=== PATIENT | female | born 1970 | race Caucasian/White ===

== ENCOUNTER 2018-01-16 14:39 | Emergency (ER) | payer SELFPAY ==
--- NOTE | 2018-01-16 16:08 | RAD REPORT ---
EXAM DESCRIPTION: CT - Head Brain Wo Cont - 01/16/2018 4:01 pm CLINICAL HISTORY: Headache, dizziness COMPARISON: CT study August 2008 TECHNIQUE: Axial 5 mm thick images of the head were obtained without IV contrast. All CT scans are performed using dose optimization technique as appropriate and may include automated exposure control or mA/KV adjustment according to patient size. FINDINGS: No intracranial hemorrhage, mass, edema or shift of mid-line structures. No acute infarcti on changes seen. No abnormal extra-axial fluid collections. Ventricles are normal. Mastoid air cells and visualized portions of the paranasal sinuses are clear. No acute bony findings. IMPRESSION: Negative non-contrast CT head examination. No significant change from 2007.
[2018-01-16 16:39] LABS: Absolute Lymphocytes (CBC) 2.8 K/uL (0.7-4.9); Absolute Monocytes 0.3 K/uL (0.1-1.3); Absolute Neutrophil 3.9 K/uL (1.8-8.0); Basophils % 0.7 % (0-1.3); Eosinophils % 1.6 % (0-4.4); Hematocrit 41.3 % (36.0-45.0); Lymphocytes % 38.8 % (15.3-44.8); MCV 93.2 fL (80-100); MPV 8.2 fL (7.6-11.3); Monocytes % 4.1 % (3.3-12.3); RBC Red Blood Cell Count 4.43 M/uL (3.86-4.86)
[2018-01-16] MEDS ORDERED: DEXAMETHASONE 10 MG/ML VIAL ONE (16:45)
[2018-01-16] MEDS ORDERED: DIPHENHYDRAMINE 50 MG/ML VIAL ONE (16:45)
[2018-01-16] MEDS ORDERED: KETOROLAC 30 MG/ML INJ ONE (16:45)
[2018-01-16] MEDS ORDERED: NA CHLORIDE 0.9% 1,000 ML ONE (16:46)
[2018-01-16 16:47] LABS: Potassium 3.7 mEq/L (3.6-5.0)
[2018-01-16 16:50] LABS: Bilirubin Total 0.6 mg/dL (0.3-1.2); Protein, Total 7.8 g/dL (6.0-8.3)
--- NOTE | 2018-01-16 17:36 | ER ---
Nurse's Notes [facility] Name: Claudine Ornelas Age: 47 yrs Sex: Female : 1970 Arrival Date: 01/16/2018 Time: 14:43 Bed 14 Private MD: Diagnosis: Headache Presentation: 01/16 14:47 Presenting complaint: Patient states: Headache, shakiness, decreased energy for 2 aj weeks. Patient called PCP last week and this AM, is unable to get appointment this week. Transition of care: patient was not received from another setting of care. Onset of symptoms was January 04, 2018. Care prior to arrival: None. 14:47 Method Of Arrival: Ambulatory 14:47 Acuity: AURE 3 aj Triage Assessment: 14:49 Headache History: The patient has had previous headaches and this one is similar to previous episodes. General: Appears in no apparent distress. comfortable, Behavior is calm, cooperative, appropriate for age. Pain: Complains of pain in face and scalp Pain currently is 8 out of 10 on a pain scale. Pain began 2 weeks ago. Neuro: Level of Consciousness is awake, alert, obeys commands, Oriented to person, place, time, situation, Principal Java Developer are equal bilaterally Moves all extremities. Full function Gait is steady, Speech is normal, Facial symmetry appears normal, Reports headache. Respiratory: Airway is patent Respiratory effort is even, unlabored, Respiratory pattern is regular, symmetrical. Derm: Skin is intact, is healthy with good turgor, Skin is pink, warm \T\ dry. normal. 15:30 Pain: Also complains of nausea. 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 - Social history:: Smoking status: Patient uses tobacco products, smokes one-half pack cigarettes per day. Screenin:49 Abuse screen: Denies threats or abuse. Nutritional screening: No deficits noted. tw2 Tuberculosis screening: No symptoms or risk factors identified. Fall Risk None identified. Assessment: 15:30 General: Appears in no apparent distress. slender, well groomed, Behavior is calm, tw2 cooperative, appropriate for age. Pain: Complains of pain in scalp and face. Neuro: Level of Consciousness is awake, alert, obeys commands, Oriented to person, place, time, situation. Cardiovascular: Reports shortness of breath, Heart tones S1 S2 Capillary refill < 3 seconds Patient's skin is warm and dry. Respiratory: Airway is patent Respiratory effort is even, unlabored, Respiratory pattern is regular, symmetrical, Breath sounds are clear bilaterally. GI: Abdomen is flat, Bowel sounds present X 4 quads. Reports nausea. : No signs and/or symptoms were reported regarding the genitourinary system. EENT: Reports blurred vision. Derm: No signs and/or symptoms reported regarding the dermatologic system. Skin is intact, is healthy with good turgor, Skin is pink, warm \T\ dry. Skin temperature is warm. Musculoskeletal: Range of motion: intact in all extremities. 15:58 Reassessment: to CT at this time via w/c with Subhash Jaffe. tw2 16:40 Reassessment: Patient appears in no apparent distress at this time. No changes from tw2 previously documented assessment. Patient and/or family updated on plan of care and expected duration. Pain level reassessed. Patient is alert, oriented x 3, equal unlabored respirations, skin warm/dry/pink. 17:43 Reassessment: Patient appears in no apparent distress at this time. No changes from tw2 previously documented assessment. Patient and/or family updated on plan of care and expected duration. Pain level reassessed. Patient is alert, oriented x 3, equal unlabored respirations, skin warm/dry/pink. Patient states symptoms have not improved. 18:05 Reassessment: Patient appears in no apparent distress at this time. Patient and/or tw2 family updated on plan of care and expected duration. Pain level reassessed. Patient is alert/active/playful, equal unlabored respirations, skin warm/dry/pink. provider at bedside at this time, pts pain has decreased. Patient states feeling better. Patient states symptoms have improved. Vital Signs: 14:49 BP 129 / 99; Pulse 87; Resp 16; Temp 98.5; Pulse Ox 99% on R/A; Weight 68.04 kg; Height aj 5 ft. 1 in. (154.94 cm); Pain 8/10; 16:39 BP 145 / 84; Pulse 69; Resp 16; Pulse Ox 98% on R/A; tw2 17:42 BP 139 / 83; Pulse 71; Resp 16; Pulse Ox 100% ; Pain 8/10; tw2 18:12 BP 128 / 74; Pulse 63; Resp 17; Pulse Ox 98% on R/A; tw2 14:49 Body Mass Index 28.34 (68.04 kg, 154.94 cm) aj ED Course: 14:43 Patient arrived in ED. mr 14:48 Triage completed. aj 14:49 Arm band placed on left wrist. Patient placed in waiting room, Patient notified of wait aj time. 15:21 Bed in low position. Call light in reach. Adult w/ patient. Pulse ox on. NIBP on. Warm tw2 blanket given. Pillow given. 15:23 Rae Lopez, DELFINA is Primary Nurse. tw2 15:24 Johnine Jung NP is PHCP. pm1 15:24 Raza Armenta MD is Attending Physician. pm1 15:59 Patient moved to RI via wheelchair. nj 16:25 Inserted saline lock: 22 gauge in left forearm, using aseptic technique. ,using aseptic tw2 technique. per Subhash Lawrence Blood collected. Missed attempt(s): 22 gauge in left per Subhash Lawrence. Bleeding controlled, band aid applied, catheter tip intact. 16:50 No provider procedures requiring assistance completed. tw2 17:42 Awaiting: AWAITING MEDICATION WATCH prior to discharge. tw2 18:12 IV discontinued, intact, bleeding controlled, No redness/swelling at site. Pressure tw2 dressing applied. Administered Medications: 16:28 Drug: Benadryl 25 mg Route: IVP; Site: left forearm; tw2 17:33 Follow up: Response: No adverse reaction tw2 16:30 Drug: Decadron - Dexamethasone 10 mg Route: IVP; Site: left forearm; tw2 17:33 Follow up: Response: No adverse reaction tw2 16:32 Drug: TORadol 30 mg Route: IVP; Site: left forearm; tw2 17:33 Follow up: Response: No adverse reaction; Pain is unchanged, physician notified tw2 16:39 Drug: NS 0.9% 1000 ml Route: IV; Rate: 1000 ml; Site: left forearm; tw2 17:33 Follow up: Response: No adverse reaction; IV Status: Completed infusion; IV Intake: tw2 1000ml 17:42 Drug: morphine 4 mg Route: IVP; Site: left forearm; tw2 18:06 Follow up: Response: No adverse reaction; Pain is decreased tw2 Intake: 17:33 IV: 1000ml; Total: 1000ml. tw2 Outcome: 17:36 Discharge ordered by MD. pm1 18:12 Discharged to home ambulatory, with family. tw2 18:12 Condition: stable 18:12 Discharge instructions given to patient, family, Instructed on discharge instructions, follow up and referral plans. no drinking with medication, no driving heavy equipment, medication usage, Demonstrated understanding of instructions, follow-up care, medications, Prescriptions given X 1. 18:13 Patient left the ED. tw2 18:15 Patient left the ED. pm1 18:19 Patient left the ED. tw2 Signatures: Yvette Henderson RN RN aj Rivera, Maria mr Johnnie Jung, THORACIC SURGEON THORACIC SURGEON pm1 Rae Lopez RN RN tw2 Miguel Champion Corrections: (The following items were deleted from the chart) 16:40 15:58 Reassessment: Patient is alert/active/playful, equal unlabored respirations, skin tw2 warm/dry/pink. to CT at this time via w/c with Subhash Jaffe tw2
--- NOTE | 2018-01-16 17:36 | EDPHYS ---
Physician Documentation [facility] Name: Claudine Ornelas Age: 47 yrs Sex: Female : 1970 Arrival Date: 01/16/2018 Time: 14:43 Bed 14 Private MD: ED Physician Raza Armenta HPI: 01/16 16:22 This 47 yrs old Female presents to ER via Ambulatory with complaints of pm1 Headache, Nausea. 16:22 The patient complains of pain to the behind bilateral eyes. The patient describes the pm1 headache as aching, constant. Onset: The symptoms/episode began/occurred 3 day(s) ago. Associated signs and symptoms: Pertinent positives: nausea, Photophobia Pertinent negatives: fever, neck stiffness, rash, vision changes, vomiting. Severity of symptoms: in the emergency department the pain is actually worse. Headache History: Other Similar to prior headaches but lasting longer. The symptoms are alleviated by Darkened room, quiet, the symptoms are aggravated by lights. The patient has experienced similar episodes in the past, a few times. The patient has not recently seen a physician, the patient's primary care provider is Dr. Barclay. TOP FORMER: 14:49 LMP N/A - Hysterectomy aj Historical: - Allergies: 14:49 Reglan; aj - Home Meds: 14:49 acyclovir 400 mg Oral tab 1 tab daily [Active]; lisinopril 10 mg Oral tab 1 tab once aj daily [Active]; Tapazole 10 mg Oral tab 1 tab once daily [Active]; Xanax 1 mg Oral tab nightly [Active]; - PMHx: 14:49 Anxiety; Hypertension; Hypothyroidism; aj 14:49 Grave's disease; aj - PSHx: 14:49 orif right shoudler; Hysterectomy; Tubal ligation; aj - Immunization history:: Adult Immunizations up to date. - Social history:: Smoking status: Patient uses tobacco products, smokes one-half pack cigarettes per day. ROS: 16:22 Constitutional: Negative for fever, chills, and weight loss, Eyes: Negative for injury, pm1 pain, redness, and discharge, ENT: Negative for injury, pain, and discharge, Neck: Negative for injury, pain, and swelling, Cardiovascular: Negative for chest pain, palpitations, and edema, Respiratory: Negative for shortness of breath, cough, wheezing, and pleuritic chest pain, Back: Negative for injury and pain, : Negative for injury, bleeding, discharge, and swelling, MS/Extremity: Negative for injury and deformity, Skin: Negative for injury, rash, and discoloration. 16:22 Abdomen/GI: Positive for nausea, Negative for abdominal pain, vomiting, diarrhea. 16:22 Neuro: Positive for headache. 16:22 Neuro: Negative for altered mental status, loss of consciousness, numbness, tingling, weakness. Exam: 16:25 Constitutional: This is a well developed, well nourished patient who is awake, alert, pm1 and in no acute distress. Head/Face: Normocephalic, atraumatic. Eyes: Pupils equal round and reactive to light, extra-ocular motions intact. Lids and lashes normal. Conjunctiva and sclera are non-icteric and not injected. Cornea within normal limits. Periorbital areas with no swelling, redness, or edema. ENT: Nares patent. No nasal discharge, no septal abnormalities noted. Tympanic membranes are normal and external auditory canals are clear. Oropharynx with no redness, swelling, or masses, exudates, or evidence of obstruction, uvula midline. Mucous membranes moist. Neck: Trachea midline, no thyromegaly or masses palpated, and no cervical lymphadenopathy. Supple, full range of motion without nuchal rigidity, or vertebral point tenderness. No Meningismus. Chest/axilla: Normal chest wall appearance and motion. Nontender with no deformity. No lesions are appreciated. Cardiovascular: Regular rate and rhythm with a normal S1 and S2. No gallops, murmurs, or rubs. No pulse deficits. Respiratory: Lungs have equal breath sounds bilaterally, clear to auscultation and percussion. No rales, rhonchi or wheezes noted. No increased work of breathing, no retractions or nasal flaring. Abdomen/GI: Soft, non-tender, with normal bowel sounds. No distension or tympany. No guarding or rebound. No evidence of tenderness throughout. Back: No spinal tenderness. No costovertebral tenderness. Full range of motion. 16:25 MS/ Extremity: Pulses equal, no cyanosis. Neurovascular intact. Full, normal range of motion. 16:25 Skin: Appearance: normal except for affected area, soft red 1 cm mass present to right auricle. 16:25 Neuro: Orientation: is normal, Mentation: is normal, Cranial nerves: CN II- XII are normal as tested, Cerebellar function: normal finger to nose testing, Motor: is normal, moves all fours, strength is 5/5 in all extremities, Sensation: is normal. Vital Signs: 14:49 BP 129 / 99; Pulse 87; Resp 16; Temp 98.5; Pulse Ox 99% on R/A; Weight 68.04 kg; Height aj 5 ft. 1 in. (154.94 cm); Pain 8/10; 16:39 BP 145 / 84; Pulse 69; Resp 16; Pulse Ox 98% on R/A; tw2 17:42 BP 139 / 83; Pulse 71; Resp 16; Pulse Ox 100% ; Pain 8/10; tw2 18:12 BP 128 / 74; Pulse 63; Resp 17; Pulse Ox 98% on R/A; tw2 14:49 Body Mass Index 28.34 (68.04 kg, 154.94 cm) aj MDM: 15:28 Patient medically screened. pm1 17:35 Data reviewed: vital signs. Data interpreted: Pulse oximetry: on room air is 98 %. pm1 Interpretation: normal. Counseling: I had a detailed discussion with the patient and/or guardian regarding: the historical points, exam findings, and any diagnostic results supporting the discharge/admit diagnosis, lab results, radiology results, the need for outpatient follow up, to return to the emergency department if symptoms worsen or persist or if there are any questions or concerns that arise at home. 01/16 15:50 Order name: CBC with Diff pm1 01/16 15:50 Order name: CMP pm1 01/16 15:52 Order name: TSH pm1 01/16 16:48 Order name: Comprehensive Metabolic Panel EDMS 01/16 16:49 Order name: CBC with Automated Diff; Complete Time: 17:05 EDMS 01/16 17:27 Order name: Thyroid Stimulating Hormone; Complete Time: 17:30 EDMS 01/16 15:50 Order name: CT Head Brain wo Cont pm1 01/16 15:50 Order name: IV Saline Lock; Complete Time: 16:24 pm1 01/16 16:08 Order name: CT; Complete Time: 16:09 EDMS Administered Medications: 16:28 Drug: Benadryl 25 mg Route: IVP; Site: left forearm; tw2 17:33 Follow up: Response: No adverse reaction tw2 16:30 Drug: Decadron - Dexamethasone 10 mg Route: IVP; Site: left forearm; tw2 17:33 Follow up: Response: No adverse reaction tw2 16:32 Drug: TORadol 30 mg Route: IVP; Site: left forearm; tw2 17:33 Follow up: Response: No adverse reaction; Pain is unchanged, physician notified tw2 16:39 Drug: NS 0.9% 1000 ml Route: IV; Rate: 1000 ml; Site: left forearm; tw2 17:33 Follow up: Response: No adverse reaction; IV Status: Completed infusion; IV Intake: tw2 1000ml 17:42 Drug: morphine 4 mg Route: IVP; Site: left forearm; tw2 18:06 Follow up: Response: No adverse reaction; Pain is decreased tw2 Disposition: 18:22 Co-signature as Attending Physician, Raza Armenta MD. rn Disposition: 01/16/18 17:36 Discharged to Home. Impression: Headache. - Condition is Stable. - Discharge Instructions: General Headache Without Cause. - Prescriptions for Fiorinal 50- 325-40 mg Oral Capsule - take 1 capsule by ORAL route every 4 hours As needed - not to exceed 6 capsules per day; 20 capsule. - Medication Reconciliation Form, Thank You Letter form. - Follow up: Emergency Department; When: As needed; Reason: Worsening of condition. Follow up: Private Physician; When: 2 - 3 days; Reason: Recheck today's complaints, Continuance of care, Re-evaluation by your physician. - Problem is new. - Symptoms have improved. Signatures: Dispatcher [employer] Yvette Hubbard RN RN aj Nieto, Roman, MD MD rn Marinas, Patrick, LOLY MICROBIOLOGY INSTRUCTOR pm1 Rae Lopez RN RN tw2
[2018-01-16] MEDS ORDERED: MORPHINE 4 MG/ML SYR ONE (17:58)
[2018-01-16 18:34] VITALS: TEMP 98.5
[2018-01-16 18:38] VITALS: BP 128/74; O2SAT 98
== END 2018-01-16 18:19 | disposition home or self-care (01) ==
LOC: ER 14:39
DX: R51 Headache (principal); I10 Essential (primary) hypertension; F41.9 Anxiety disorder, unspecified; E03.9 Hypothyroidism, unspecified; F17.210 Nicotine dependence, cigarettes, uncomplicated
CPT/HCPCS: 36415; 70450; 80053; 84443; 85025; 96361; 96374; 96375; 99284; J1100; J7030

== ENCOUNTER 2019-07-19 13:58 | Emergency (ER) | payer SELFPAY ==
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
[2019-07-19] MEDS ORDERED: dexAMETHasone 10 MG/ML VIAL ONE (14:34)
[2019-07-19] MEDS ORDERED: KETOROLAC 30 MG/ML INJ ONE (14:34)
[2019-07-19] MEDS ORDERED: CLINDAMYCIN 900MG/D5W 900 MG/50 ML IVPB IV ONE (14:35)
[2019-07-19 14:43] LABS: Absolute Lymphocytes (CBC) 1.9 K/uL (0.7-4.9); Basophils % 0.8 % (0-1.3); Hematocrit 34.5 % (36.0-45.0); Lymphocytes % 27.1 % (15.3-44.8); MPV 8.3 fL (7.6-11.3)
[2019-07-19 14:54] LABS: BUN Blood Urea Nitrogen 7 mg/dL (7-18); Bicarbonate 28 mmol/L (21-32); Glucose Level 90 mg/dL (74-106); Potassium 3.9 mmol/L (3.5-5.1); Sodium Level 144 mmol/L (136-145)
--- NOTE | 2019-07-19 15:01 | ER ---
Nurse's Notes [facility] Name: Claudine Ornelas Age: 49 yrs Sex: Female : 1970 Arrival Date: 07/19/2019 Time: 14:03 Bed 27 Private MD: Diagnosis: Cellulitis of face;Periapical abscess without sinus Presentation: 07/19 14:07 Presenting complaint: Left sided facial swelling and pain since 0400 today. PT report hb recent broken upper right tooth. Transition of care: patient was not received from another setting of care. Onset of symptoms was July 19, 2019. Risk Assessment: Do you want to hurt yourself or someone else? Patient reports no desire to harm self or others. Initial Sepsis Screen: Does the patient meet any 2 criteria? No. Patient's initial sepsis screen is negative. Does the patient have a suspected source of infection? No. Patient's initial sepsis screen is negative. Care prior to arrival: None. 14:07 Method Of Arrival: Ambulatory 14:07 Acuity: AURE 3 hb Triage Assessment: 14:48 EENT: Reports pain in left cheek. rv Historical: - Allergies: 14:07 Reglan; hb - Immunization history:: Adult Immunizations up to date. - Social history:: Smoking status: Patient/guardian denies using tobacco. - Ebola Screening: : No symptoms or risks identified at this time. Screenin:48 Abuse screen: Denies threats or abuse. Denies injuries from another. Nutritional rv screening: No deficits noted. Tuberculosis screening: No symptoms or risk factors identified. Fall Risk None identified. Assessment: 14:46 General: Appears in no apparent distress. uncomfortable, Behavior is calm, cooperative. rv Pain: Complains of pain in left cheek. Neuro: Level of Consciousness is awake, alert, obeys commands, Oriented to person, place, time, situation. Cardiovascular: Patient's skin is warm and dry. Respiratory: Airway is patent. GI: No signs and/or symptoms were reported involving the gastrointestinal system. : No signs and/or symptoms were reported regarding the genitourinary system. EENT: Dental caries noted in upper right first bicuspid. Derm: Skin is intact. Musculoskeletal: Swelling present in left cheek. 15:25 Reassessment: patient is alert and calm upon administration of Morphine, before rv discharge. patient is with a family member who is going to drive her home. Vital Signs: 14:07 BP 130 / 96; Pulse 81; Resp 16; Temp 98.9; Pulse Ox 96% on R/A; Weight 74.84 kg; Height hb 5 ft. 1 in. (154.94 cm); Pain 9/10; 15:24 BP 128 / 94; Pulse 76; Resp 16; Temp 98.5(O); Pulse Ox 97% on R/A; rv 14:07 Body Mass Index 31.18 (74.84 kg, 154.94 cm) hb ED Course: 14:03 Patient arrived in ED. am2 14:06 Arm band placed on. hb 14:08 Triage completed. hb 14:09 Guicho Simental PA is PHCP. jr8 14:09 Sanjay Zavala MD is Attending Physician. jr8 14:26 Adolfo Fontanez RN is Primary Nurse. rv 14:30 Inserted saline lock: 20 gauge in right forearm, using aseptic technique. Blood rv collected. 14:39 BMP Sent. rv 14:39 CBC with Diff Sent. rv 14:48 Patient has correct armband on for positive identification. Bed in low position. Call rv light in reach. Side rails up X 1. Pulse ox on. NIBP on. 15:24 No provider procedures requiring assistance completed. IV discontinued, intact, rv bleeding controlled, No redness/swelling at site. Administered Medications: 14:37 Drug: TORadol - Ketorolac 15 mg Route: IVP; Site: right forearm; rv 15:23 Follow up: Response: Pain is unchanged, physician notified rv 14:38 Drug: Decadron - Dexamethasone 10 mg Route: IVP; Site: right forearm; rv 15:23 Follow up: Response: No adverse reaction rv 14:39 Drug: Clindamycin 900 mg Route: IVPB; Infused Over: 30 mins; Site: right forearm; rv 15:23 Follow up: IV Status: Completed infusion; IV Intake: 50ml rv 15:15 Drug: morphine 4 mg Route: IVP; Site: right forearm; rv 15:21 Follow up: rass 0 rv 15:22 Follow up: Response: Medication administered at discharge. rv 15:15 Drug: Zofran 4 mg Route: IVP; Site: right forearm; rv 15:22 Follow up: Response: Medication administered at discharge. rv Intake: 15:23 IV: 50ml; Total: 50ml. rv Outcome: 14:59 Discharge ordered by MD. roth 15:24 Discharged to home ambulatory, with family. rv 15:24 Condition: good 15:24 Discharge instructions given to patient, family, Instructed on discharge instructions, follow up and referral plans. medication usage, Demonstrated understanding of instructions, follow-up care, medications, Prescriptions given X 4. 15:28 Patient left the ED. rv Signatures: Guicho Simental PA PA jr8 Aretha Lindo, RN RN Yvette Adams am2 Adolfo Fontanez, RN RN rv
--- NOTE | 2019-07-19 15:02 | EDPHYS ---
Physician Documentation [facility] Name: Claudine Ornelas Age: 49 yrs Sex: Female : 1970 Arrival Date: 07/19/2019 Time: 14:03 Bed 27 Private MD: ED Physician Sanjay Zavala HPI: 07/19 14:16 This 49 yrs old Female presents to ER via Ambulatory with complaints of jr8 Toothache, Facial Swelling. 14:16 The patient presents with pain, redness, swelling. The problem is located in the upper jr8 right first bicuspid. Onset: The symptoms/episode began/occurred this morning. Severity of symptoms: At their worst the symptoms were moderate, in the emergency department the symptoms are unchanged. Pt states that at about 0400 she began having severe pain and swelling to the left upper jaw/face area. Pt has poor dentition and has had dental infections in the past. . Historical: - Allergies: 14:07 Reglan; hb - Immunization history:: Adult Immunizations up to date. - Social history:: Smoking status: Patient/guardian denies using tobacco. - Ebola Screening: : No symptoms or risks identified at this time. ROS: 14:19 Constitutional: Negative for fever, chills, and weight loss, Eyes: Negative for injury, jr8 pain, redness, and discharge, Neck: Negative for injury, pain, and swelling, Cardiovascular: Negative for chest pain, palpitations, and edema, Respiratory: Negative for shortness of breath, cough, wheezing, and pleuritic chest pain, Abdomen/GI: Negative for abdominal pain, nausea, vomiting, diarrhea, and constipation, Back: Negative for injury and pain, : Negative for injury, bleeding, discharge, and swelling, MS/Extremity: Negative for injury and deformity, Neuro: Negative for headache, weakness, numbness, tingling, and seizure. 14:19 ENT: Positive for dental pain, Gum pain Teeth pain Exam: 14:19 Constitutional: This is a well developed, well nourished patient who is awake, alert, jr8 and in no acute distress. Head/Face: Normocephalic, atraumatic. Eyes: Pupils equal round and reactive to light, extra-ocular motions intact. Lids and lashes normal. Conjunctiva and sclera are non-icteric and not injected. Cornea within normal limits. Periorbital areas with no swelling, redness, or edema. Neck: Trachea midline, no thyromegaly or masses palpated, and no cervical lymphadenopathy. Supple, full range of motion without nuchal rigidity, or vertebral point tenderness. No Meningismus. Chest/axilla: Normal chest wall appearance and motion. Nontender with no deformity. No lesions are appreciated. Cardiovascular: Regular rate and rhythm with a normal S1 and S2. No gallops, murmurs, or rubs. Normal PMI, no JVD. No pulse deficits. Respiratory: Lungs have equal breath sounds bilaterally, clear to auscultation and percussion. No rales, rhonchi or wheezes noted. No increased work of breathing, no retractions or nasal flaring. Abdomen/GI: Soft, non-tender, with normal bowel sounds. No distension or tympany. No guarding or rebound. No evidence of tenderness throughout. Back: No spinal tenderness. No costovertebral tenderness. Full range of motion. Skin: Warm, dry with normal turgor. Normal color with no rashes, no lesions, and no evidence of cellulitis. MS/ Extremity: Pulses equal, no cyanosis. Neurovascular intact. Full, normal range of motion. Neuro: Awake and alert, GCS 15, oriented to person, place, time, and situation. Cranial nerves II-XII grossly intact. Motor strength 5/5 in all extremities. Sensory grossly intact. Cerebellar exam normal. Normal gait. 14:19 Head/face: Noted is erythema, that is mild, of the left cheek, swelling, that is mild, of the left cheek. 14:19 ENT: Dental exam: dental caries, that is moderate, missing teeth, diffusely. Vital Signs: 14:07 BP 130 / 96; Pulse 81; Resp 16; Temp 98.9; Pulse Ox 96% on R/A; Weight 74.84 kg; Height hb 5 ft. 1 in. (154.94 cm); Pain 9/10; 15:24 BP 128 / 94; Pulse 76; Resp 16; Temp 98.5(O); Pulse Ox 97% on R/A; rv 14:07 Body Mass Index 31.18 (74.84 kg, 154.94 cm) hb [facility]: 14:09 Patient medically screened. 8 14:57 Data reviewed: vital signs, nurses notes, lab test result(s). Data interpreted: Pulse jr8 oximetry: on room air is 96 %. Interpretation: normal. Counseling: I had a detailed discussion with the patient and/or guardian regarding: the historical points, exam findings, and any diagnostic results supporting the discharge/admit diagnosis, lab results, the need for outpatient follow up, a dentist, to return to the emergency department if symptoms worsen or persist or if there are any questions or concerns that arise at home. Response to treatment: the patient's symptoms have markedly improved after treatment. ED course: Strict return precautions given if swelling were to worsen or if she were to start running high fevers. Otherwise improvement noted in ED. Patient non toxic. No airway compromise and VS are stable with no acute lab findings . 07/19 14:22 Order name: CBC with Diff jr8 07/19 14:22 Order name: BMP jr8 07/19 14:47 Order name: CBC with Automated Diff; Complete Time: 14:54 EDMS 07/19 14:55 Order name: Basic Metabolic Panel; Complete Time: 14:57 EDMS 07/19 14:22 Order name: SL; Complete Time: 14:33 jr8 Administered Medications: 14:37 Drug: TORadol - Ketorolac 15 mg Route: IVP; Site: right forearm; rv 15:23 Follow up: Response: Pain is unchanged, physician notified rv 14:38 Drug: Decadron - Dexamethasone 10 mg Route: IVP; Site: right forearm; rv 15:23 Follow up: Response: No adverse reaction rv 14:39 Drug: Clindamycin 900 mg Route: IVPB; Infused Over: 30 mins; Site: right forearm; rv 15:23 Follow up: IV Status: Completed infusion; IV Intake: 50ml rv 15:15 Drug: morphine 4 mg Route: IVP; Site: right forearm; rv 15:21 Follow up: rass 0 rv 15:22 Follow up: Response: Medication administered at discharge. rv 15:15 Drug: Zofran 4 mg Route: IVP; Site: right forearm; rv 15:22 Follow up: Response: Medication administered at discharge. rv Disposition: 07/20 07:58 Co-signature as Attending Physician, Sanjay Zavala MD I agree with the assessment and kdr plan of care. Disposition: 07/19/19 14:59 Discharged to Home. Impression: Cellulitis of face, Periapical abscess without sinus. - Condition is Stable. - Discharge Instructions: Cellulitis, Adult, Dental Abscess. - Prescriptions for Clindamycin HCl 300 mg Oral Capsule - take 1 capsule by ORAL route every 6 hours for 10 days; 40 capsule. Ibuprofen 800 mg Oral Tablet - take 1 tablet by ORAL route every 12 hours As needed take with food; 20 tablet. Tylenol- Codeine #3 300-30 mg Oral Tablet - take 2 tablets by ORAL route every 6 hours As needed; 20 tablet. Prednisone 20 mg Oral Tablet - take 2 tablet by ORAL route once daily for 5 days; 10 tablet. - Medication Reconciliation Form, Thank You Letter, Antibiotic Education, Prescription Opioid Use form. - Follow up: Private Physician; When: 2 - 3 days; Reason: Recheck today's complaints, Continuance of care, Re-evaluation by your physician. - Problem is new. - Symptoms have improved. Signatures: Dispatcher [employer] EDMS Sanjay Zavala MD MD kdr Roszak, Josh, PA PA jr8 Aretha Lindo, DELFINA RN Adolfo Fontanez RN RN rv Corrections: (The following items were deleted from the chart) 07/19 15:28 14:59 07/19/2019 14:59 Discharged to Home. Impression: Cellulitis of face; Periapical rv abscess without sinus. Condition is Stable. Forms are Medication Reconciliation Form, Thank You Letter, Antibiotic Education, Prescription Opioid Use. Follow up: Private Physician; When: 2 - 3 days; Reason: Recheck today's complaints, Continuance of care, Re-evaluation by your physician. Problem is new. Symptoms have improved. jr8
[2019-07-19] MEDS ORDERED: ONDANSETRON 4 MG/2 ML VIAL ONE (15:09)
[2019-07-19] MEDS ORDERED: MORPHINE 4 MG/ML SYR ONE (15:09)
[2019-07-19 16:55] VITALS: BP 128/94; TEMP 98.5; O2SAT 97
== END 2019-07-19 15:28 | disposition home or self-care (01) ==
LOC: ER 13:58
DX: L03.211 Cellulitis of face (principal); K04.7 Periapical abscess without sinus
CPT/HCPCS: 36415; 80048; 85025; 96365; 96375; 99284; J1100; J2405

== ENCOUNTER 2020-04-07 18:56 | Emergency (ER) | payer SELFPAY ==
[2020-04-07 20:57] LABS: Absolute Lymphocytes (CBC) 2.1 K/uL (0.7-4.9); Hematocrit 34.7 % (36.0-45.0); Lymphocytes % 43.7 % (15.3-44.8); MPV 8.2 fL (7.6-11.3)
--- NOTE | 2020-04-07 21:01 | RAD REPORT ---
EXAM DESCRIPTION: Boyd Single View04/07/2020 8:55 pm CLINICAL HISTORY: Leg swelling COMPARISON: 2010 FINDINGS: The lungs appear clear of acute infiltrate. The heart is normal size IMPRESSION: No acute abnormalities displayed
[2020-04-07 21:09] LABS: Protime INR 0.91
[2020-04-07 21:18] LABS: Urine Blood NEGATIVE (NEG); Urine Glucose NEGATIVE (NEG); Urine Protein NEGATIVE (NEG); Urine Specific Gravity 1.015 (1.005-1.030)
[2020-04-07 21:25] LABS: ALT/SGPT 33 U/L (12-78); AST/SGOT 27 U/L (15-37); Albumin 3.9 g/dL (3.4-5.0); Alkaline Phosphatase 165 U/L (45-117); BUN Blood Urea Nitrogen 6 mg/dL (7-18); Bicarbonate 28 mmol/L (21-32); Bilirubin Direct < 0.1 mg/dL (0-0.2); Bilirubin Total 0.3 mg/dL (0.2-1.0); Glucose Level 94 mg/dL (74-106); Magnesium 2.2 mg/dL (1.8-2.4); NT PRO-BNP 73 pg/mL (<125); Potassium 3.6 mmol/L (3.5-5.1); Protein, Total 7.6 g/dL (6.4-8.2); Sodium Level 142 mmol/L (136-145); Troponin (Emerg Dept Use Only) < 0.02 ng/mL (0.0-0.045)
--- NOTE | 2020-04-07 22:06 | RAD REPORT ---
EXAM DESCRIPTION: USExtrem Venous W Compress Bil04/07/2020 9:38 pm CLINICAL HISTORY: Bilateral leg swelling COMPARISON: none FINDINGS: The common femoral, superficial femoral, popliteal and posterior tibial veins bilaterally are compressible and demonstrate augmentation. Doppler demonstrates good flow. IMPRESSION: No evidence of deep venous thrombosis involving either lower extremity.
--- NOTE | 2020-04-07 22:44 | ER ---
Nurse's Notes [facility] Name: Claudine Ornelas Age: 49 yrs Sex: Female : 1970 Arrival Date: 04/07/2020 Time: 18:59 Bed 17 Private MD: Diagnosis: Edema, unspecified;Hypothyroidism, unspecified Presentation: 04/07 19:06 Chief complaint: Patient states: bilateral feet swelling x 5 days. Coronavirus screen: ss Proceed with normal triage. Patient denies a cough. Patient denies shortness of breath or difficulty breathing. Patient denies measured and/or subjective temperature greater than 100.4F prior to today's visit. Patient denies travel on a cruise ship or to a country the [facility] currently lists as an affected area. Patient denies contact with known and/or suspected case of COVID-19. Ebola Screen: Patient denies exposure to infectious person. Patient denies travel to an Ebola-affected area in the 21 days before illness onset. Initial Sepsis Screen: Does the patient meet any 2 criteria? No. Patient's initial sepsis screen is negative. Does the patient have a suspected source of infection? No. Patient's initial sepsis screen is negative. Risk Assessment: Do you want to hurt yourself or someone else? Patient reports no desire to harm self or others. Onset of symptoms was April 02, 2020. 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 - Social history:: Smoking status: Patient reports the use of cigarette tobacco products, smokes one-half pack cigarettes per day. Screenin:48 Abuse screen: Denies threats or abuse. Denies injuries from another. Nutritional mg2 screening: No deficits noted. Tuberculosis screening: No symptoms or risk factors identified. Fall Risk IV access (20 points). Assessment: 20:47 General: Appears in no apparent distress. comfortable, Behavior is calm, cooperative. mg2 Pain: Complains of pain in right leg. Neuro: Level of Consciousness is awake, alert, obeys commands, Oriented to person, place, time, situation. Cardiovascular: Capillary refill < 3 seconds Patient's skin is warm and dry. Respiratory: Airway is patent Respiratory effort is even, unlabored, Respiratory pattern is regular, symmetrical. GI: No signs and/or symptoms were reported involving the gastrointestinal system. : No signs and/or symptoms were reported regarding the genitourinary system. EENT: No signs and/or symptoms were reported regarding the EENT system. Derm: Skin is intact, is healthy with good turgor, Skin is pink, warm \T\ dry. normal. Musculoskeletal: Circulation, motion, and sensation intact. Capillary refill < 3 seconds, Swelling present in right leg. Vital Signs: 19:08 BP 136 / 84; Resp 16; Temp 97.4; Weight 77.11 kg; Height 5 ft. 1 in. (154.94 cm); Pain ss 7/10; 19:09 Pulse 85; Pulse Ox 99% on R/A; ss 22:42 BP 148 / 79; Pulse 88; Resp 18; Pulse Ox 100% on R/A; mg2 19:08 Body Mass Index 32.12 (77.11 kg, 154.94 cm) ED Course: 18:59 Patient arrived in ED. as 19:07 Triage completed. ss 19:08 Arm band placed on left wrist. ss 20:07 Geovani Moon PA is PHCP. cp 20:07 Anatoliy Candelario MD is Attending Physician. cp 20:31 Quinn Jean, DELFINA is Primary Nurse. mg2 20:45 Inserted saline lock: 20 gauge in left antecubital area, using aseptic technique. Blood mg2 collected. by José supervisor pre wave. 20:48 Patient has correct armband on for positive identification. front desk monitor on. Pulse mg2 ox on. NIBP on. Door closed. Warm blanket given. 20:49 No provider procedures requiring assistance completed. mg2 20:56 XRAY Chest (1 view) In Process Unspecified. EDMS 21:41 US Extremity Venous W Compression Alex In Process Unspecified. EDMS 22:55 IV discontinued, intact, bleeding controlled, No redness/swelling at site. Pressure mg2 dressing applied. Administered Medications: No medications were administered Outcome: 22:43 Discharge ordered by . cp 22:55 Discharged to home ambulatory. mg2 22:55 Condition: stable 22:55 Discharge instructions given to patient, Instructed on discharge instructions, follow up and referral plans. Demonstrated understanding of instructions, follow-up care. 22:55 Patient left the ED. mg2 Signatures: Dispatcher [employer] Codi Cuevas Shelby, RN RN ss Geovani Moon PA PA cp Gardose, Michele, RN RN mg2
--- NOTE | 2020-04-07 22:44 | EDPHYS ---
Physician Documentation [facility] Name: Claudine Ornelas Age: 49 yrs Sex: Female : 1970 Arrival Date: 04/07/2020 Time: 18:59 Bed 17 Private MD: ED Physician Anatoliy Candelario HPI: 04/07 20:40 This 49 yrs old Female presents to ER via Ambulatory with complaints of Leg cp Swelling. 20:40 The patient presents with swelling. The complaints affect the left crouch, anterior cp aspect of left ankle and dorsum of left foot, right crouch, anterior aspect of right ankle and dorsum of right foot. 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 - Social history:: Smoking status: Patient reports the use of cigarette tobacco products, smokes one-half pack cigarettes per day. ROS: 20:45 Constitutional: Positive for fatigue, Negative for body aches, chills, fever. cp 20:45 Eyes: Negative for injury, pain, redness, and discharge. cp 20:45 Cardiovascular: Positive for edema, Negative for chest pain, palpitations. 20:45 Respiratory: Negative for cough, dyspnea on exertion, orthopnea, shortness of breath, wheezing. 20:45 Abdomen/GI: Negative for abdominal pain, nausea, vomiting, and diarrhea. 20:45 Back: Negative for pain at rest, pain with movement. 20:45 : Negative for urinary symptoms. 20:45 Skin: Negative for cellulitis, rash. 20:45 Neuro: Negative for altered mental status, dizziness, headache, syncope, weakness. 20:45 All other systems are negative. cp Exam: 20:50 ECG was reviewed by the Attending Physician. cp 20:55 Constitutional: The patient appears in no acute distress, alert, awake, cp non-diaphoretic, non-toxic, well developed, well nourished, uncomfortable. 20:55 Head/Face: Normocephalic, atraumatic. cp 20:55 Eyes: Periorbital structures: appear normal, Conjunctiva: normal, no exudate, no injection, Sclera: no appreciated abnormality, Lids and lashes: appear normal, bilaterally. 20:55 ENT: External ear(s): are unremarkable, Nose: is normal, Mouth: is normal, Posterior pharynx: Airway: no evidence of obstruction, patent. 20:55 Chest/axilla: Inspection: normal. 20:55 Cardiovascular: Rate: normal, Rhythm: regular, Edema: pedal edema, that is mild, ankle edema, that is mild, JVD: is not appreciated. 20:55 Respiratory: the patient does not display signs of respiratory distress, Respirations: normal, no use of accessory muscles, no retractions, labored breathing, is not present, Breath sounds: are clear throughout, no decreased breath sounds, no stridor, no wheezing. 20:55 Abdomen/GI: Exam negative for discomfort, distension, guarding, Inspection: abdomen appears normal. 20:55 Back: pain, is absent, ROM is normal. 20:55 Skin: cellulitis, is not appreciated, no rash present. 20:55 Neuro: Orientation: to person, place \T\ time. Mentation: is normal, Cerebellar function: is grossly normal, Motor: moves all fours, strength is normal, Sensation: is normal, Gait: is steady. Vital Signs: 19:08 BP 136 / 84; Resp 16; Temp 97.4; Weight 77.11 kg; Height 5 ft. 1 in. (154.94 cm); Pain ss 7/10; 19:09 Pulse 85; Pulse Ox 99% on R/A; ss 22:42 BP 148 / 79; Pulse 88; Resp 18; Pulse Ox 100% on R/A; mg2 19:08 Body Mass Index 32.12 (77.11 kg, 154.94 cm) ss MDM: 20:11 Patient medically screened. cp 22:43 Data reviewed: vital signs, nurses notes, lab test result(s), EKG, radiologic studies, cp plain films, ultrasound, and as a result, I will discharge patient. 22:43 Test interpretation: by ED physician or midlevel provider: ECG. Counseling: I had a cp detailed discussion with the patient and/or guardian regarding: the historical points, exam findings, and any diagnostic results supporting the discharge/admit diagnosis, lab results, radiology results, the need for outpatient follow up, for definitive care, a family practitioner, to return to the emergency department if symptoms worsen or persist or if there are any questions or concerns that arise at home. 0608 20:27 Order name: TSH; Complete Time: 21:59 cp 06/08 21:59 Interpretation: Abnormal: TSH 9.610. cp / 20:27 Order name: T3 Free; Complete Time: 21:59 cp /08 20:27 Order name: Basic Metabolic Panel; Complete Time: 21:59 cp /08 21:59 Interpretation: Normal except: BUN 6; GFR 78. cp /08 20:27 Order name: CBC with Diff; Complete Time: 21:59 cp /08 22:00 Interpretation: Normal except: RBC 3.70; HGB 11.7; HCT 34.7. cp 06/08 20:27 Order name: LFT's; Complete Time: 21:59 cp /08 22:07 Interpretation: Normal except: ALK 165; GLOB 3.7. cp /08 20:27 Order name: Magnesium; Complete Time: 21:59 cp /08 20:27 Order name: US Extremity Venous W Compression Alex; Complete Time: 22:42 cp /08 20:27 Order name: NT PRO-BNP; Complete Time: 21:59 cp /08 22:07 Interpretation: Reviewed. cp /08 20:27 Order name: PT-INR; Complete Time: 21:59 cp /08 20:27 Order name: Troponin (emerg Dept Use Only); Complete Time: 21:59 cp /08 20:27 Order name: XRAY Chest (1 view); Complete Time: 21:59 cp /08 20:27 Order name: EKG; Complete Time: 20:28 cp /08 20:53 Order name: Urine Dipstick--Ancillary (enter results); Complete Time: 21:59 mt / 21:37 Order name: T4 Free; Complete Time: 21:59 EDMS 08 22:00 Interpretation: Abnormal: T4F 0.75. cp 06/08 20:27 Order name: Cardiac monitoring; Complete Time: 20:47 cp /08 20:27 Order name: EKG - Nurse/Tech; Complete Time: 20:47 cp 04/07 20:27 Order name: IV Saline Lock; Complete Time: 20:47 cp 04/07 20:27 Order name: Labs collected and sent; Complete Time: 20:47 cp 04/07 20:27 Order name: O2 Per Protocol; Complete Time: 20:47 cp 04/07 20:27 Order name: O2 Sat Monitoring; Complete Time: 20:47 cp EC:50 Rate is 72 beats/min. Rhythm is regular. CT interval is normal. QRS interval is normal. cp QT interval is normal. Interpreted by me. Reviewed by me. Administered Medications: No medications were administered Disposition: 04/08 05:43 Co-signature as Attending Physician, Anatoliy Candelario MD. [facility] Disposition: 04/07/20 22:43 Discharged to Home. Impression: Edema, unspecified, Hypothyroidism, unspecified. - Condition is Stable. - Discharge Instructions: Edema, Hypothyroidism. - Medication Reconciliation Form, Thank You Letter, Antibiotic Education, Prescription Opioid Use form. - Follow up: Private Physician; When: 1 - 2 days; Reason: Recheck today's complaints. - Problem is new. - Symptoms have improved. Addendum: 04/07/2020 20:45 Addendum: HPI: Patient reports history of hypothyroidism. Patient reports she has not c p taken meds for hypothyroidism for several years and with recent move to [place] from [place], [place] she does not have a primary physician. Signatures: Dispatcher [employer] EDFL Leona White RN RN ss Geovani Moon PA PA cp Quinn Jean RN RN mg2 Anatoliy Candelario MD MD [facility] Corrections: (The following items were deleted from the chart) 22:55 22:43 04/07/2020 22:43 Discharged to Home. Impression: Edema, unspecified; mg2 Hypothyroidism, unspecified. Condition is Stable. Forms are Medication Reconciliation Form, Thank You Letter, Antibiotic Education, Prescription Opioid Use. Follow up: Private Physician; When: 1 - 2 days; Reason: Recheck today's complaints. Problem is new. Symptoms have improved. cp
[2020-04-07 23:26] VITALS: TEMP 97.4
[2020-04-07 23:35] VITALS: BP 148/79; O2SAT 100
--- NOTE | 2020-04-08 11:45 | EKG ---
Test Date: 2020-04-07 Test Time: 20:44:03 Water Purifier: MG MEASUREMENT RESULTS: Intervals: Rate: 72 MO: 158 QRSD: 76 QT: 438 QTc: 479 [place]: P: 56 MO: 158 QRS: 41 T: 34 INTERPRETIVE STATEMENTS: Normal sinus rhythm Normal ECG No previous ECG available for comparison Electronically Signed On 04-08-20 11:43:13 CDT by Alfred Joseph
== END 2020-04-07 22:55 | disposition home or self-care (01) ==
LOC: ER 18:56
DX: E03.9 Hypothyroidism, unspecified (principal); I10 Essential (primary) hypertension; F17.210 Nicotine dependence, cigarettes, uncomplicated; Z88.8 Allergy status to other drugs, medicaments and biological substances
CPT/HCPCS: 36415; 71045; 80048; 80076; 81003; 83735; 83880; 84439; 84443; 84481; 84484; 85025; 85610; 93005; 93970; 99284

== ENCOUNTER 2020-08-24 22:38 | Emergency (ER) | payer SELFPAY ==
[2020-08-24] MEDS ORDERED: MORPHINE 4 MG/ML SYR ONE (23:42)
[2020-08-24] MEDS ORDERED: ONDANSETRON 4 MG (ODT) TAB ONE (23:46)
--- NOTE | 2020-08-25 00:33 | ER ---
Nurse's Notes [facility] Name: Claudine Ornelas Age: 50 yrs Sex: Female : 1970 Arrival Date: 08/24/2020 Time: 22:41 Bed 8 Private MD: Diagnosis: Spondylolysis, lumbosacral region Presentation: 08/24 22:53 Chief complaint: Patient states: COMPLAINING OF LOWER BACK PAIN, AND HIP PAIN. COULD rv NOT PUT PRESSURE ON THE LEFT FOOT. UNABLE TO AMBULATE NORMALLY. SEEN BY DOCTOR BACK IN [place], MRI AND XRAY WAS DONE. PAIN IS UNBEARABLE. 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 Coronavirus screen: Client denies travel out of the [place] in the last 14 days. At this time, the client does not indicate any symptoms associated with coronavirus-19. Ebola Screen: No symptoms or risks identified at this time. Initial Sepsis Screen: Does the patient meet any 2 criteria? No. Patient's initial sepsis screen is negative. Does the patient have a suspected source of infection? No. Patient's initial sepsis screen is negative. Risk Assessment: Do you want to hurt yourself or someone else? Patient reports no desire to harm self or others. Onset of symptoms is unknown. 22:53 Method Of Arrival: Wheelchair rv 22:53 Acuity: AURE 3 rv Triage Assessment: 22:57 General: Appears uncomfortable, Behavior is calm, cooperative. Pain: Complains of pain rv in low back area Pain radiates to left hip and right hip Pain currently is 10 out of 10 on a pain scale. Quality of pain is described as stabbing, Is continuous. EENT: No signs and/or symptoms were reported regarding the EENT system. Neuro: Level of Consciousness is awake, alert, obeys commands, Oriented to person, place, time, situation. Cardiovascular: Patient's skin is warm and dry. Respiratory: Airway is patent Respiratory effort is even, unlabored. Musculoskeletal: Swelling absent Reports pain in low back area. 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 - Social history:: Smoking status: Reported history of juuling and/or vaping. Patient/guardian denies using tobacco, Stopped _ months ago 1. Screenin:58 Abuse screen: Denies threats or abuse. Denies injuries from another. Nutritional rv screening: No deficits noted. Tuberculosis screening: No symptoms or risk factors identified. Fall Risk None identified. Assessment: 08/25 00:48 Reassessment: Patient states feeling better. Patient states symptoms have improved. rv Neuro: Level of Consciousness is awake, alert, obeys commands, Oriented to person, place, time, situation. Vital Signs: 08/24 22:53 BP 125 / 74; Pulse 81; Resp 18; Temp 98; Pulse Ox 100% ; Weight 76.2 kg; Height 5 ft. rv (152.40 cm); Pain 08/09; 08/25 00:00 BP 121 / 76; Pulse 78; Resp 17; Pulse Ox 100% on R/A; rv 00:30 BP 124 / 68; Pulse 76; Resp 16; Temp 98; Pulse Ox 100% on R/A; rv 00:49 Pain 4/10; rv 08/24 22:53 Body Mass Index 32.81 (76.20 kg, 152.40 cm) rv ED Course: 08/24 22:41 Patient arrived in ED. cl3 22:42 Adolfo Fontanez, DELFINA is Primary Nurse. rv 22:44 Geovani Moon PA is PHCP. cp 22:54 Anatoliy Candelario MD is Attending Physician. mh7 22:56 Triage completed. rv 22:58 Arm band placed on right wrist. Patient placed in the treatment room, on a stretcher, rv Patient notified of wait time. 22:59 Patient has correct armband on for positive identification. Pulse ox on. NIBP on. rv 23:54 CT Lumbar Spine Wo Con In Process Unspecified. EDMS 08/25 00:31 Da Brewster DO is Referral Physician. mh7 00:32 Brittney Leon MD is Referral Physician. mh7 Administered Medications: 08/24 23:34 Drug: morphine 4 mg Route: IM; Site: right deltoid; rv 08/25 00:49 Follow up: Pain 4/10 Adult; Response: No adverse reaction; Marked relief of symptoms; rv Pain is decreased; RASS: Alert and Calm (0) 08/24 23:34 Drug: Zofran (Ondansetron) 4 mg Route: PO; rv 08/25 00:49 Follow up: Response: No adverse reaction rv Outcome: 00:33 Discharge ordered by MD. stroud 00:49 Patient left the ED. rv Signatures: Dispatcher [employer] EDMS Geovani Moon PA PA cp Vicente, Ronaldo, RN RN Jeremie Murrieta cl3 Anatoliy Candelario MD MD mh7
--- NOTE | 2020-08-25 00:33 | EDPHYS ---
Physician Documentation [facility] Name: Claudine Ornelas Age: 50 yrs Sex: Female : 1970 Arrival Date: 08/24/2020 Time: 22:41 Bed 8 Private MD: ED Physician Anatoliy Candelario HPI: 08/24 23:28 This 50 yrs old Female presents to ER via Wheelchair with complaints of Back mh7 Pain. 23:37 The patient presents with pain that is chronic, with no known mechanism of injury. The mh7 symptoms are located in the low back. Onset: The symptoms/episode began/occurred 6 month(s) ago, and became worse 1 month(s) ago. The pain radiates to the left hip. Associated signs and symptoms: Pertinent negatives: abdominal pain, chest pain, constipation, dysuria, fever, headache, hematuria, incontinence, nausea, numbness, tingling, urinary retention, vomiting, weakness. The problem was sustained from a chronic condition, from unknown cause. Modifying factors: The patient symptoms are alleviated by nothing, the patient symptoms are aggravated by movement, standing, walking. Severity of symptoms: At their worst the symptoms were moderate, last night, in the emergency department the symptoms are unchanged, despite home interventions. The patient has experienced similar episodes in the past, chronically. 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 - Social history:: Smoking status: Reported history of juuling and/or vaping. Patient/guardian denies using tobacco, Stopped _ months ago 1. ROS: 23:37 Constitutional: Negative for fever, chills, and weight loss, Eyes: Negative for injury, mh7 pain, redness, and discharge, ENT: Negative for injury, pain, and discharge, Neck: Negative for injury, pain, and swelling, Cardiovascular: Negative for chest pain, palpitations, and edema, Respiratory: Negative for shortness of breath, cough, wheezing, and pleuritic chest pain, Abdomen/GI: Negative for abdominal pain, nausea, vomiting, diarrhea, and constipation, : Negative for injury, bleeding, discharge, and swelling, Skin: Negative for injury, rash, and discoloration, Neuro: Negative for headache, weakness, numbness, tingling, and seizure, Psych: Negative for depression, anxiety, suicide ideation, homicidal ideation, and hallucinations, Allergy/Immunology: Negative for hives, rash, and allergies, Endocrine: Negative for neck swelling, polydipsia, polyuria, polyphagia, and marked weight changes, Hematologic/Lymphatic: Negative for swollen nodes, abnormal bleeding, and unusual bruising. Exam: 23:37 Head/Face: Normocephalic, atraumatic. Eyes: Pupils equal round and reactive to light, mh7 extra-ocular motions intact. Lids and lashes normal. Conjunctiva and sclera are non-icteric and not injected. Cornea within normal limits. Periorbital areas with no swelling, redness, or edema. Neck: Trachea midline, no thyromegaly or masses palpated, and no cervical lymphadenopathy. Supple, full range of motion without nuchal rigidity, or vertebral point tenderness. No Meningismus. Chest/axilla: Normal chest wall appearance and motion. Nontender with no deformity. No lesions are appreciated. Cardiovascular: Regular rate and rhythm with a normal S1 and S2. No gallops, murmurs, or rubs. Normal PMI, no JVD. No pulse deficits. Respiratory: Lungs have equal breath sounds bilaterally, clear to auscultation and percussion. No rales, rhonchi or wheezes noted. No increased work of breathing, no retractions or nasal flaring. Abdomen/GI: Soft, non-tender, with normal bowel sounds. No distension or tympany. No guarding or rebound. No evidence of tenderness throughout. 23:37 Skin: Warm, dry with normal turgor. Normal color with no rashes, no lesions, and no evidence of cellulitis. MS/ Extremity: Pulses equal, no cyanosis. Neurovascular intact. Full, normal range of motion. Neuro: Awake and alert, GCS 15, oriented to person, place, time, and situation. Cranial nerves II-XII grossly intact. Motor strength 5/5 in all extremities. Sensory grossly intact. Cerebellar exam normal. Normal gait. Psych: Awake, alert, with orientation to person, place and time. Behavior, mood, and affect are within normal limits. 23:37 Constitutional: The patient appears in no acute distress, alert, awake, uncomfortable. 23:37 Back: pain, that is moderate, of the lumbar area and left low back, ROM is painful, with all movement, normal spinal alignment noted, CVA tenderness, is absent, vertebral tenderness, is appreciated at lumbar area, muscle spasm, is appreciated in the left low back, Straight leg raises: right lower extremity does not illicit pain, left lower extremity illicits pain, at 30 degrees. Vital Signs: 22:53 BP 125 / 74; Pulse 81; Resp 18; Temp 98; Pulse Ox 100% ; Weight 76.2 kg; Height 5 ft. rv (152.40 cm); Pain 10; 08/25 00:00 BP 121 / 76; Pulse 78; Resp 17; Pulse Ox 100% on R/A; rv 00:30 BP 124 / 68; Pulse 76; Resp 16; Temp 98; Pulse Ox 100% on R/A; rv 00:49 Pain 4/10; rv 08/24 22:53 Body Mass Index 32.81 (76.20 kg, 152.40 cm) rv MDM: 08/24 23:22 Patient medically screened. [facility] 08/25 00:30 Differential diagnosis: arthritis, chronic back pain, Fracture Ligament Injury [facility] Osteoarthritis ruptured disc, vertebral fracture. Data reviewed: vital signs, nurses notes, old medical records, radiologic studies, CT scan. Data interpreted: Pulse oximetry: on room air is 100 %. Interpretation: normal. 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 Response to treatment: the patient's symptoms have markedly improved after treatment. 00:35 Special discussion: the parent(s) request CT scan. [facility] 08/24 23:24 Order name: CT Lumbar Spine Wo Con [facility] Administered Medications: 08/24 23:34 Drug: morphine 4 mg Route: IM; Site: right deltoid; rv 08/25 00:49 Follow up: Pain 4/10 Adult; Response: No adverse reaction; Marked relief of symptoms; rv Pain is decreased; RASS: Alert and Calm (0) 08/24 23:34 Drug: Zofran (Ondansetron) 4 mg Route: PO; rv 08/25 00:49 Follow up: Response: No adverse reaction rv Disposition: 08/25/20 00:33 Discharged to Home. Impression: Spondylolysis, lumbosacral region. - Condition is Stable. - Discharge Instructions: Chronic Back Pain, Back Injury Prevention, [id number], Back Pain, Adult, [id number], Back Exercises, [id number]. - Prescriptions for Ibuprofen 800 mg Oral Tablet - take 1 tablet by ORAL route every 8 hours As needed take with food; 15 tablet. Robaxin 500 mg Oral Tablet - take 2 tablet by ORAL route every 6 hours As needed; 40 tablet. Tylenol- Codeine #3 300-30 mg Oral Tablet - take 2 tablets by ORAL route every 6 hours As needed; 15 tablet. - Medication Reconciliation Form, Thank You Letter, Antibiotic Education, Prescription Opioid Use form. - Follow up: Da Brewster DO; When: 1 - 2 days; Reason: Worsening of condition, Recheck today's complaints, Continuance of care. Follow up: Brittney Leon MD; When: 1 - 2 days; Reason: Worsening of condition, Recheck today's complaints, Continuance of care. - Problem is chronic. - Symptoms have improved. Signatures: Dispatcher [employer] EDAdolfo Lopez RN RN rv Anatoliy Candelario MD MD mh7 Corrections: (The following items were deleted from the chart) 00:49 00:33 08/25/2020 00:33 Discharged to Home. Impression: Spondylolysis, lumbosacral rv region. Condition is Stable. Forms are Medication Reconciliation Form, Thank You Letter, Antibiotic Education, Prescription Opioid Use. Follow up: Da Brewster; When: 1 - 2 days; Reason: Worsening of condition, Recheck today's complaints, Continuance of care. Follow up: Brittney Leon; When: 1 - 2 days; Reason: Worsening of condition, Recheck today's complaints, Continuance of care. Problem is chronic. Symptoms have improved. mh7
[2020-08-25 01:25] VITALS: TEMP 98; O2SAT 100
[2020-08-25 01:31] VITALS: BP 124/68
--- NOTE | 2020-08-25 13:08 | RAD REPORT ---
EXAM DESCRIPTION: CT Lumbar Spine Without Intravenous Contrast CLINICAL HISTORY: The patient is 50 years old and is Female; LOWER BACK PAIN TECHNIQUE: Axial computed tomography images of the lumbar spine without intravenous contrast. Sagi ttal and coronal reformatted images were created and reviewed. This CT exam was performed using one or more of the following dose reduction techniques: automated exposure control, adjustment of the mA and/or kV according to patient size, and/or use of iterative reconstruction technique. COMPARISON: No relevant prior studies available. FINDINGS: VERTEBRAE: Bilateral pars defects are present at L5 with grade 1/2 anterolisthesis of L5 on S1. Sclerosis of the inferior endplate of L5 and superior endplate of S1 is noted. The verteb ral body heights are maintained. There is no acute fracture. DISCS/SPINAL CANAL/NEURAL FORAMINA: Intervertebral disc space narrowing and vacuum disc phenomen on at L5-S1 is present. Intervertebral disc space narrowing at L4-L5 is also present. Bilateral bang ral foraminal narrowing is present at L4-L5 and to a greater extent L5-S1. SOFT TISSUES: The soft tissues are normal. IMPRESSION: Moderate spondylosis from L4 through S1. Electronically signed by: Azucena Manuel MD 08/25/2020 12:13 AM CDT Due to temporary technical issues with the PACS/Fluency reporting system, reports are being signed by the in house radiologist without review as a courtesy to ensure prompt reporting. The interpreting r adiologist is fully responsible for the content of the report.
== END 2020-08-25 00:49 | disposition home or self-care (01) ==
LOC: ER 22:38
DX: M43.07 Spondylolysis, lumbosacral region (principal); I10 Essential (primary) hypertension; Z88.8 Allergy status to other drugs, medicaments and biological substances; Z87.891 Personal history of nicotine dependence
CPT/HCPCS: 72131; 96372; 99283